=== PATIENT | female | born 1995 | race Caucasian/White ===

== ENCOUNTER 2019-03-18 04:26 | Emergency (ER) | payer SELFPAY ==
[2019-03-18] MEDS ORDERED: HYDROCODONE/ACETAMINOPHEN 7.5-325 MG TABLET PO ONE (05:00)
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
== END 2019-03-18 05:35 | disposition home or self-care (01) ==
LOC: ER 04:26
DX: L55.9 Sunburn, unspecified (principal)
CPT/HCPCS: 99283